=== PATIENT | male | born 1985 | race Caucasian/White ===

== ENCOUNTER 2018-03-28 21:33 | Outpatient (REF) | payer MEDICAID, SELFPAY ==
[2018-03-28 22:07] LABS: ALT 36 U/L (12-78); AST 25 U/L (15-37); Albumin 3.3 g/dL (3.4-5.0); Alkaline Phosphatase 85 U/L (46-116); Anion Gap 5.3 mmol/L (3-11); BUN 12 mg/dL (7-18); Bilirubin, Total 0.1 mg/dL (0.2-1.0); CO2 31.7 mmol/L (21.0-32.0); CREATININE 1.15 mg/dL (0.70-1.30); Calcium 8.7 mg/dL (8.5-10.1); Chloride 104 mmol/L (98-107); Cholesterol 183 mg/dL (50-200); Glucose 99 mg/dL (70-100); HDL Cholesterol 36 mg/dL (40-60); LDL CHOLESTEROL 110 mg/dL (<100); Potassium 4.3 mmol/L (3.5-5.1); Sodium 141 mmol/L (136-145); Total Protein 6.9 g/dL (6.4-8.2); Triglyceride 287 mg/dL (30-150)
== END 2018-03-28 21:53 ==
LOC: NCHCN 21:33
DX: E66.01 Morbid (severe) obesity due to excess calories (principal); I10 Essential (primary) hypertension
CPT/HCPCS: 80053; 80061; 83721

== ENCOUNTER 2019-07-31 12:22 | Outpatient (REF) | payer MEDICAID, SELFPAY ==
[2019-07-31 20:33] LABS: HCT 41.6 % (40.0-50.0); HGB 13.3 g/dL (13.5-17.5); Mean Corpuscular Hemoglobin 27.8 pg (27.0-33.0); Mean Platelet Volume 10.7 fL (8.0-11.0); Platelet Count 218 x1000/uL (130-400); RBC 4.78 m/cumm (4.50-6.00); RBC Distribution Width 14.9 % (11.8-14.1); White Blood Cell Count 11.07 k/cumm (4.4-10.8)
[2019-07-31 20:42] LABS: ALT 44 U/L (16-63); AST 29 U/L (15-37); Albumin 3.4 g/dL (3.4-5.0); Alkaline Phosphatase 69 U/L (46-116); Anion Gap 6.6 mmol/L (3-11); BUN 16 mg/dL (7-18); Bilirubin, Total 0.3 mg/dL (0.2-1.0); CO2 32.4 mmol/L (21.0-32.0); Calcium 8.7 mg/dL (8.5-10.1); Calculated LDL 112 mg/dL (<100); Chloride 99 mmol/L (98-107); Cholesterol 184 mg/dL (<200); Glucose 92 mg/dL (74-106); HDL Cholesterol 36 mg/dL (40-60); Potassium 4.3 mmol/L (3.5-5.1); Sodium 138 mmol/L (136-145); Total Protein 7.2 g/dL (6.4-8.2); Triglyceride 184 mg/dL (<150)
== END 2019-07-31 12:42 ==
LOC: NCHCN 12:22
PROVIDERS: Visit Provider Nurse Practitioner Community Health
DX: R63.5 Abnormal weight gain (principal)
CPT/HCPCS: 80053; 80061; 85027; 83036; 84443

== ENCOUNTER 2019-09-12 22:54 | Outpatient (REF) | payer MEDICAID, SELFPAY ==
[2019-09-17 19:34] LABS: Cortisol, U 17 mcg/24 h (3.5-45); Urine Volume 3120 mL
== END 2019-09-12 23:14 ==
LOC: NCHCN 22:54
PROVIDERS: Visit Provider Nurse Practitioner Community Health
DX: R63.5 Abnormal weight gain (principal); L90.6 Striae atrophicae; Z68.44 Body mass index [BMI] 60.0-69.9, adult
CPT/HCPCS: 81050; 82530; 83789

== ENCOUNTER 2019-10-15 11:02 | Outpatient (REF) | payer MEDICAID, SELFPAY ==
[2019-10-15 21:29] LABS: Anion Gap 6.7 mmol/L (3-11); BUN 11 mg/dL (7-18); CO2 30.3 mmol/L (21.0-32.0); CREATININE 0.99 mg/dL (0.70-1.30); Chloride 103 mmol/L (98-107); Glucose 92 mg/dL (74-106); NT-proBNP 38 pg/mL (<300); Potassium 4.3 mmol/L (3.5-5.1); Sodium 140 mmol/L (136-145)
== END 2019-10-15 11:22 ==
LOC: NCHCN 11:02
PROVIDERS: Visit Provider Nurse Practitioner Family
DX: I50.9 Heart failure, unspecified (principal); R60.0 Localized edema; I10 Essential (primary) hypertension
CPT/HCPCS: 80048; 83880

== ENCOUNTER 2019-11-07 09:28 | Outpatient (REF) | payer MEDICAID, SELFPAY ==
[2019-11-07 21:03] LABS: Potassium 4.3 mmol/L (3.5-5.1)
== END 2019-11-07 09:48 ==
LOC: NCHCN 09:28
PROVIDERS: Visit Provider Nurse Practitioner Community Health
DX: I50.9 Heart failure, unspecified (principal); Z79.899 Other long term (current) drug therapy
CPT/HCPCS: 84132